=== PATIENT | female | born 1930 | race Caucasian/White ===

== ENCOUNTER 2017-01-22 07:32 | Inpatient (IN) | payer MEDICARE, BC ==
[~2017-01-22] VITALS: Ht 157.5 cm; Wt 65.3 kg
[2017-01-22] MEDS ORDERED: FOLI1TAB4 (07:48)
[2017-01-22] MEDS ORDERED: VESI5TAB2 (07:48)
[2017-01-22] MEDS ORDERED: RANI150C (07:48)
[2017-01-22 08:30] LABS: BASO # 0.1 K/mm3 (0.0-0.2); BASO % 1.5 % (0.0-1.0); EOS # 0.2 K/mm3 (0.0-0.50); EOS % 2.7 % (0.0-3.0); LARGE UNSTAINED CELL # 0.1 K/mm3 (0.0-0.4); LYMPH # 1.8 K/mm3 (1.5-4.5); LYMPH % 28.1 % (24.0-44.0); MEAN CORPUSCULAR HEMOGLOBIN 37.6 pg (27.0-33.0); MEAN CORPUSCULAR HGB CONC 33.6 g/dl (32.0-36.5); MEAN CORPUSCULAR VOLUME 111.7 fl (80.0-96.0); MONO # 0.3 K/mm3 (0.0-0.8); MONO % 5.4 % (0.0-5.0); NEUTROPHILS # 3.6 K/mm3 (1.8-7.7); NEUTROPHILS % 60.2 % (36.0-66.0); PLATELET COUNT, AUTOMATED 276 k/mm3 (150-450); RED CELL DISTRIBUTION WIDTH 12.6 % (11.5-14.5); WHITE BLOOD COUNT 5.9 K/mm3 (4.0-10.0)
[2017-01-22 08:32] LABS: ADD MORPHOLOGY? YES
[2017-01-22 08:53] LABS: OVALOCYTES 1+
--- NOTE | 2017-01-22 09:07 | REP ---
Clinical: Chest pain and palpitations . Comparison: None . Technique: PA and lateral. Findings: The mediastinum and cardiac silhouette are normal. The lung pedro demonstrate chronic-appearing interstitial changes without acute consolidation, effusion, or pneumothorax. The skeletal structures are intact and normal. Impression: No acute cardiopulmonary process. Signed by Hawk Luis MD 01/22/2017 08:58 A
[2017-01-22 09:53] LABS: ANION GAP 11 MEQ/L (8-16); BLOOD UREA NITROGEN 15 MG/DL (7-18); CALCIUM LEVEL 9.1 MG/DL (8.8-10.2); CARBON DIOXIDE LEVEL 24 MEQ/L (21-32); CHLORIDE LEVEL 108 MEQ/L (98-107); CREATININE FOR GFR 0.88 MG/DL (0.55-1.02); GLOMERULAR FILTRATION RATE > 60.0 (>32); GLUCOSE, FASTING 105 MG/DL (83-110); POTASSIUM SERUM 4.7 MEQ/L (3.5-5.1); SODIUM LEVEL 143 MEQ/L (136-145)
[2017-01-22 09:54] LABS: MAGNESIUM LEVEL 2.2 MG/DL (1.8-2.4); T UPTAKE 32 % (30-39); THYROXINE (T4) 10.4 UG/DL (4.5-12.0)
[2017-01-22] MEDS ORDERED: VESI5TAB2 PO (09:58)
[2017-01-22] MEDS ORDERED: FOLI1TAB4 PO (09:58)
[2017-01-22] MEDS ORDERED: CALCTAB28 PO (09:58)
[2017-01-22] MEDS ORDERED: CALC600T31 PO (09:58)
[2017-01-22] MEDS ORDERED: RANI150T PO (09:58)
[2017-01-22] MEDS ORDERED: DICL1GEL3 TD (09:58)
[2017-01-22] MEDS ORDERED: VITMTA PO (09:58)
[2017-01-22] MEDS ORDERED: PROC20004 INJ (09:59)
[2017-01-22] MEDS ORDERED: ENOXAPARIN 60 MG/0.6 ML SYR (J1650) SC ONE (10:30)
[2017-01-22] MEDS ORDERED: ACETAMINOPHEN TAB 650MG DOSE (2X325MG) PO PRN (11:00)
--- NOTE | 2017-01-22 12:09 | HPE ---
DATE OF ADMISSION: 01/22/2017 PRIMARY CARE PROVIDER: Dr. Kenneth Doll in [place]. CHIEF COMPLAINT: Irregular heart rate. HISTORY OF PRESENT ILLNESS: Patient is an 86-year-old female with a past medical history significant for gastroesophageal reflux disease (GERD), myelodysplastic disorder, who presented to [facility] on January 22, 2017 for irregular heart rate. The patient had a regular followup with her primary care provider on January 20, 2017. During the office visit, the patient had a short run of palpitations. An EKG was ordered. The patient was found to have atrial fib/atrial flutter. The episode resolved spontaneously within a few minutes. Patient was instructed to go to the [facility]. The patient was admitted for one day. The patient was given Lovenox and no recurrence of atrial fibrillation was noted and the patient was discharged home. On January 22, 2017 at around 3:30 a.m., the patient had acute recurrence of the irregular heart rate and it has been persistent. Therefore, the patient came to [facility] for further evaluation. While the patient was in the emergency room, the patient was noted to have rapid conversation between sinus rhythm and atrial fibrillation, and the hospitalist team was called for admission. The patient denies any other associated symptoms. No similar episodes occurred in the past. The patient did have two days of diarrhea after eating a pink hamburger that occurred approximately a week ago. No recent new medications. She denies any alcohol use. Denies any recent trauma. ALLERGIES: 1. PENICILLIN. 2. SULFA. PAST MEDICAL HISTORY: Myelodysplastic disorder. Follows with oncology in [place]. Gastroesophageal reflux disease (GERD). History of C. difficile in November of 2015. Pyelonephritis. PAST SURGICAL HISTORY: Cholecystectomy in 2016. Umbilical hernia repair. Femoral hernia repair. SOCIAL HISTORY: Denies smoking. Denies alcohol use. Denies recreational drug use. Home medications - Pepcid one tablet by mouth twice a day - calcium/vitamin D one tablet by mouth daily - diclofenac one dose topically at bedtime - Procrit 20,000 injection monthly - multivitamin one tablet by mouth daily - VESIcare 5 mg by mouth daily REVIEW OF SYSTEMS: GENERAL: No fever. No chills. HEENT: Vision changes, no auditory changes. CARDIOVASCULAR: Sudden onset of palpitations, first episode started on 01/20/2017, episode resolved within a few minutes. Current episode started early on 01/22/2017 and is being persistent. No chest pain. No lightheadedness. RESPIRATORY: No shortness of breath. No cough. No sputum production. GASTROINTESTINAL (GI): No abdominal pain. No nausea. No vomiting. NEUROLOGICAL: No numbness. No tingling. PHYSICAL EXAMINATION: VITAL SIGNS: Temperature is 96.5. Pulse is approximately 140, irregularly irregular. Blood pressure is 155/90. Pulse oximetry is 99% in room air. GENERAL: No signs of acute distress. Alert and oriented times three. HEENT: Normocephalic, atraumatic. Extraocular motors grossly intact. CARDIOVASCULAR: Irregularly irregular. Heart rate running between 120 to 140s, and occasionally converts back to sinus rhythm on the monitor. RESPIRATORY: Clear to auscultation bilaterally. No wheezes, rales or rhonchi. ABDOMEN: Soft, nontender, nondistended. Bowel sounds present. No rebound. No guarding. EXTREMITIES: No edema. No signs of cyanosis. LABORATORY DATA: WBC is 5.9, hemoglobin 10.5, hematocrit 31.3, platelet count is 276. Sodium is 143, potassium 4.7, chloride is 108, carbon dioxide 24, BUN 15, creatinine 0.88, GFR greater than 60, fasting glucose 105, calcium is 9.1, magnesium is 2.2. TSH is 3.57, T4 is 10.4. IMAGING STUDIES: Chest x-ray showed no acute cardiopulmonary processes. EKG: Multiple EKGs were performed. Patient has conversion between sinus and atrial fibrillation continuously on different EKGs. ASSESSMENT/PLAN: 1. Atrial fibrillation. Patient will be admitted to the progressive care unit (PCU) under inpatient status. [employer] Program Compliance Specialist Dr. Infante has been informed and consulted. Per recommendations, patient should have a therapeutic dose of Lovenox and it was given in the emergency room. Patient is continually converting sinus and atrial fibrillation. When the patient is in sinus, the patient's heart rate is borderline low and will appreciate Dr. Infante's recommendation for any rate control therapy. 2. History of myelodysplastic disorder. The patient is received Procrit every month in [facility]. 3. Gastroesophageal reflux disease (GERD). Patient will be on Protonix. 4. History of pyelonephritis. 5. History of C. Difficile. 6. History of hyperlipidemia. Recently patient's atorvastatin was discontinued due to normalized cholesterol. 7. Deep vein thrombosis (DVT) prophylaxis. Patient is on Lovenox.
[2017-01-22] MEDS: PANTOPRAZOLE 40MG TAB (PROTONIX) PO SCH (12:17)
[2017-01-22 16:00] VITALS: BP 120/78
[2017-01-22 20:28] VITALS: BP 100/58
--- NOTE | 2017-01-22 22:28 | CR ---
DATE OF CONSULTATION: 01/22/2017 REFERRING PROVIDER: Estelle Lopez DO REASON FOR CONSULTATION: Atrial fibrillation. HISTORY OF PRESENTING ILLNESS: 86-year-old woman who has been previously healthy from a cardiac point of view. Last year, at the beginning of 2015, she was found to be anemic and she was transfused two units of packed red blood cells at [facility]. She also had had colonoscopy done and this has been negative. She was referred to see hematology/oncology in [place], [place] and has been on Procrit. They were planning to do a bone marrow biopsy but it was postponed. In this same year, in the month of October of 2016, she developed gallbladder disease and had cholecystectomy done without any cardiac complications, but after that developed Clostridium (C) difficile colitis and she was treated for that. She then has been doing fairly well and her hemoglobin and hematocrit has been stable with a hemoglobin around 10. For about 1-2 weeks, she has been having a fluttering in her chest on and off. She was doing fine on Friday, but her symptoms got worse and on Friday she went to the [facility] and she was found to have periods of rapid heart rate alternating with a normal sinus rhythm and sometimes slows at times and patient discovered that she feels her heart was going to stop. She was admitted overnight and she was given anticoagulation therapy with Lovenox, then discharged home for followup as outpatient. She was given a referral to the office. However, this morning, she was not feeling well and she was brought here for further management. Cardiology consult was called. In the emergency room (ER), she was found to have episode of rapid heart rate alternating with normal sinus rhythm in which the heart rate is normal and sometimes slow. Patient was admitted for further management and monitoring and cardiology consult was called. When I saw her this evening, she was sitting in the chair in her room, in no acute distress at rest and she denies any chest pain even with activities. Sometimes when her heart rate is fluttering like that she may feel short of breath, but then she denies any dizziness or lightheadedness. She denies any active bleeding. She has a cough but denies any hemoptysis or fever. She has no focal manifestation. Currently, she is not on any cardiac medications. In the recent past, she was on a statin but it was stopped and she is being monitored. PAST MEDICAL HISTORY: She has a past medical history positive for hyperlipidemia and she was found to have a cyst in the left kidney for which she had a biopsy. As mentioned above, she has underlying anemia but no active bleeding was discovered. She is being monitored by hematology/oncology in [place]. She also has a history of C. difficile colitis. She denies any prior history of hypertension, valvular heart disease, atrial fibrillation, CVA, cardiomyopathy, sudden cardiac . There is no history of diabetes mellitus, chronic obstructive pulmonary disease (COPD)/asthma, chronic kidney disease. There is no history of thyroid disorders. PAST SURGICAL HISTORY: Positive for cholecystectomy, otherwise unremarkable. FAMILY HISTORY: Positive for hypertension, atrial fibrillation. SOCIAL HISTORY: Patient lives in the [facility]. She denies any smoking or ethyl alcohol (EtOH) abuse. ALLERGIES: She has allergies to PENICILLIN and SULFA, adverse reaction described: rash. ADVANCED DIRECTIVES: Patient is a FULL CODE. On physical examination, patient is alert and oriented, very pleasant, and in no acute distress at rest. Her last vital signs today revealed a blood pressure of 120/78, with a pulse that varied between 76 up to 100 on telemetry, but EKG revealed a pulse of 123 beats per minute in the ER. She is afebrile with a temperature of 98.7 degrees Fahrenheit and her oxygen saturation is 98-99% on room air. Examination of the head, ears, eyes, nose, and throat: Atraumatic. Neck is supple, no jugular venous distention (JVD) or carotid bruits. The lungs were clear bilaterally on auscultation without any wheezing or crackles. The heart examination revealed normal S1 and S2 without gallops. The point of maximum impulse (PMI) is not displaced. There is no rub. I could not appreciate any murmurs. Abdomen is soft and nontender, bowel sounds are active. Extremities revealed no pedal edema. Neurological examination grossly is negative for focal deficit. LABORATORY DATA: CBC revealed a WBC of 5.9, hemoglobin 10.5, hematocrit 31.3, and platelets 276,000. BMP revealed a sodium of 143, potassium 4.7, chloride 108, CO2 24, BUN 15, creatinine 0.88, GFR more than 60, fasting glucose 105, calcium 9.1. Serum magnesium is 2.1. One set of cardiac enzymes revealed a CPK of 118, CK-MB of 1.0, relative index of 0.84, and serum troponin is less than 0.02. Thyroid function tests revealed a TSH of 3.57, free T4 of 3.3, thyroxine 10.4. Chest x-ray revealed normal cardiac size. No manifestation of congestive heart failure or pleural effusion. Electrocardiogram done earlier today, 01/22/2017, at 0827 hours, revealed sinus rhythm with isolated premature atrial contractions (PACs), borderline first-degree atrioventricular (AV) block, low voltage QRS complexes noted in the chest leads. Electrocardiogram done also today at 08:20:34 also revealed episode of sinus rhythm with isolated PACs and burst of a narrow complex supraventricular tachycardia that could be atrial flutter or supraventricular tachycardia (SVT). Otherwise, no remarkable changes from last EKG but the brief burst of narrow complex tachycardia. Electrocardiogram done this same day at 08:21:30 did not reveal any significant changes. A further EKG done also today at 08:22:23 revealed a longer period of narrow complex tachycardia that could be, as mentioned above, atrial flutter with history of atrial fibrillation. IMPRESSION: 1. Sick sinus syndrome in this 86-year-old woman with history of hyperlipidemia, chronic anemia, has been having fluttering in her chest on and off and seems to have periods of normal sinus rhythm with a slow heart rate at times that varies between 40-50 beats per minute and also a rapid narrow complex tachycardia that can be about 140 beats per minute, symptomatic. I believe she will need a permanent pacemaker, she will need to be treated for her rapid heart rate and this was discussed with her. I also will discuss with her daughter, who is the health care proxy, then I will discuss with Dr. Harry / Dr. Wood for the permanent pacemaker implantation. In the meantime, we will continue the telemetry and the anticoagulation therapy with Lovenox but will need to monitor closely her hemoglobin, hematocrit, and platelets. We should try to get more information from her religion professor in [place], [place] because she might need chronic anticoagulation therapy. While in the hospital, will assess her left ventricular ejection fraction (LVEF) with an echocardiogram, no significant valvular heart disease heard on examination. Her blood pressure seems to be stable. It was a pleasure to participate in the care of Ms. Ami Barrientos for her underlying cardiac condition. I will continue to monitor her along with you while in the hospital. She appears to be stable. Case was discussed earlier with her hospitalist. JESSICA
[2017-01-23] VITALS (7 sets, daily range): BP systolic 98–133; BP diastolic 58–78
[2017-01-23 06:16] LABS: MEAN CORPUSCULAR HEMOGLOBIN 37.1 pg (27.0-33.0); MEAN CORPUSCULAR HGB CONC 33.7 g/dl (32.0-36.5); MEAN CORPUSCULAR VOLUME 110.1 fl (80.0-96.0); RED CELL DISTRIBUTION WIDTH 12.2 % (11.5-14.5); WHITE BLOOD COUNT 5.6 K/mm3 (4.0-10.0)
[2017-01-23 06:31] LABS: ANION GAP 7 MEQ/L (8-16); BLOOD UREA NITROGEN 16 MG/DL (7-18); CALCIUM LEVEL 8.7 MG/DL (8.8-10.2); CARBON DIOXIDE LEVEL 27 MEQ/L (21-32); CHLORIDE LEVEL 107 MEQ/L (98-107); CREATININE FOR GFR 0.94 MG/DL (0.55-1.02); GLOMERULAR FILTRATION RATE > 60.0 (>32); GLUCOSE, FASTING 103 MG/DL (83-110); POTASSIUM SERUM 4.2 MEQ/L (3.5-5.1); SODIUM LEVEL 141 MEQ/L (136-145)
--- NOTE | 2017-01-23 07:22 | ECGEPIP ---
Stationary ECG Study [facility] - ED Test Date: 2017-01-22 Pat Name: KYLER VIGIL Department: Room: [place] [address] Gender: F Hose Seamer: LALITA : 1930 Requested By: Angelina Kate Order Number: [id number] Reading MD: Angelina Kate Measurements Intervals [place] Rate: 68 P: 62 WV: 200 QRS: -16 QRSD: 81 T: 40 QT: 371 QTc: 396 Interpretive Statements SINUS RHYTHM WITH FREQUENT SUPRAVENTRICULAR PREMATURE COMPLEXES LOW QRS VOLTAGE IN PRECORDIAL LEADS ABNORMAL RHYTHM ECG NSTTW ABNORMALITY NO PRIOR FOR COMPARISON Electronically Signed On 01-23-2017 7:22:36 EDT by Angelina Kate
--- NOTE | 2017-01-23 08:38 | IPN ---
DATE: 01/23/2017 Mrs. Barrientos continues to have episodes of what looks to me like atrial tachycardia alternating with sinus rhythm. I did not see any bradycardiac episodes overnight, but when she is in sinus rhythm, she is in 50s and 60s. She does feel palpitations but has no other symptoms. There has been no chest pain or shortness of breath. Vital signs: Blood pressure 110/70, heart rate as above. She is afebrile. Saturation 97% on room air. Her jugular venous pulse (JVP) is not elevated. Lungs are clear. Heart exam reveals regular rhythm. No gallop, rub or murmur. Abdomen is soft, nontender. I do not appreciate any peripheral edema. Neurologically she is intact. LABORATORY: Hemoglobin 9.6, hematocrit 28, platelet count 272,000. Basic metabolic panel is normal. Thyroid enzymes are normal and cardiac enzymes are normal as well. Chest x-ray did not reveal any abnormalities. ASSESSMENT/PLAN: Mrs. Barrientos is an 86-year-old female who has some form of probably myelodysplastic syndrome who presents with palpitations and is found to have very frequent but brief bouts of narrow complex tachycardia alternating with sinus rhythm. She seems to be quite bothered by this. I do not believe this represents atrial fibrillation or flutter. Because she is bradycardic in between but without any pauses, I think that we can try to administer Ic agent to suppress the arrhythmia. I am going to start her on small dose flecainide while she is monitored in the hospital. Further management will depend on her response. JESSICA
[2017-01-23] MEDS: FLECAINIDE 50MG TABLET PO SCH ×2 (10:22→20:44)
[2017-01-23] MEDS: PANTOPRAZOLE 40MG TAB (PROTONIX) PO SCH (10:22)
[2017-01-23] MEDS: SOLIFENACIN 5 MG TAB PO SCH (10:22)
[2017-01-23] MEDS: MULTIVITAMINS/MINERALS THERAP 1 TAB PO SCH (10:22)
[2017-01-23] MEDS: FOLIC ACID 1 MG TAB PO SCH (10:22)
[2017-01-23] MEDS ORDERED: SLF 3 ML SYR IV PRN (17:15)
--- NOTE | 2017-01-23 20:15 | IPN ---
DATE: 01/23/2017 SUBJECTIVE: The patient seen and examined in the room today. The patient is still complaining to intermittent palpitations. No overnight events are reported. OBJECTIVE: VITAL SIGNS: Temperature is 99.1, pulse is 86, respirations 20, blood pressure is 110/78, pulse oximetry is 97% on room air. GENERAL: No sign of acute distress. Alert and oriented times three. HEENT: Normocephalic, atraumatic. Extraocular motor grossly intact. CARDIOVASCULAR: Regular rate. Positive S1, S2 at the time of examination. LUNGS: Clear to auscultation bilaterally. ABDOMEN: Soft, nontender. EXTREMITIES: No edema. No sign of cyanosis. LABORATORY DATA: WBC is 5.6, hemoglobin 9,.6, hematocrit 28.6, platelet count is 272. Sodium is 141, potassium 4.2, chloride 107, carbon dioxide 27, BUN 16, creatinine 0.94. GFR greater than 60, fasting glucose 103. Calcium 3.7. ASSESSMENT AND PLAN: 1. Cardiac arhythmia. The patient's heart rate is switching between narrow complex tachycardia with sinus rhythm. Panel Machine Operator consulted. We appreciate their recommendations. 2. History of myelodysplastic disorder. The patient is being followed with oncologist in [place]. 3. Gastroesophageal reflux disease. On Protonix. 4. History of C. Difficile. 5. History of pyelonephritis. 6. History of lipidemia. The patient's statin was discontinued by the primary care provider recently due to normalized lipid profile. 7. Deep venous thrombosis (DVT) prophylaxis. The patient is on Lovenox.
[2017-01-23] MEDS: SLF 3 ML SYR IV SCH (20:45)
[2017-01-24] VITALS: BP 118/63
[2017-01-24 04:00] VITALS: BP 131/62
[2017-01-24] MEDS: SLF 3 ML SYR IV SCH ×2 (05:25→13:40)
[2017-01-24 06:25] LABS: MEAN CORPUSCULAR HEMOGLOBIN 37.1 pg (27.0-33.0); MEAN CORPUSCULAR HGB CONC 34.1 g/dl (32.0-36.5); MEAN CORPUSCULAR VOLUME 108.6 fl (80.0-96.0); RED CELL DISTRIBUTION WIDTH 12.5 % (11.5-14.5); WHITE BLOOD COUNT 5.8 K/mm3 (4.0-10.0)
[2017-01-24 06:30] LABS: ANION GAP 8 MEQ/L (8-16); BLOOD UREA NITROGEN 21 MG/DL (7-18); CALCIUM LEVEL 8.9 MG/DL (8.8-10.2); CARBON DIOXIDE LEVEL 27 MEQ/L (21-32); CHLORIDE LEVEL 105 MEQ/L (98-107); CREATININE FOR GFR 0.94 MG/DL (0.55-1.02); GLOMERULAR FILTRATION RATE > 60.0 (>32); GLUCOSE, FASTING 101 MG/DL (83-110); POTASSIUM SERUM 4.3 MEQ/L (3.5-5.1); SODIUM LEVEL 140 MEQ/L (136-145)
--- NOTE | 2017-01-24 07:35 | ECGEPIP ---
Stationary ECG Study [facility] Test Date: 2017-01-24 Pat Name: KYLER VIGIL Department: Room: [place] [address] Gender: F Culture Manager: : 1930 Requested By: Lynsey Roque Order Number: [id number] Reading MD: Aila Massey Measurements Intervals [place] Rate: 62 P: 72 CT: 207 QRS: -8 QRSD: 106 T: 32 QT: 416 QTc: 425 Interpretive Statements SINUS RHYTHM first DEGREE BLOCK PACS ON PRIOR 01/22/17 Electronically Signed On 01-24-2017 7:35:29 EDT by Alia Massey
[2017-01-24 08:00] VITALS: BP 112/68
[2017-01-24] MEDS: FLECAINIDE 50MG TABLET PO SCH (08:01)
[2017-01-24] MEDS: PANTOPRAZOLE 40MG TAB (PROTONIX) PO SCH (08:01)
[2017-01-24] MEDS: MULTIVITAMINS/MINERALS THERAP 1 TAB PO SCH (08:02)
[2017-01-24] MEDS: SOLIFENACIN 5 MG TAB PO SCH (08:02)
[2017-01-24] MEDS: FOLIC ACID 1 MG TAB PO SCH (08:02)
[2017-01-24 12:00] VITALS: BP 133/58
[2017-01-24] MEDS ORDERED: FLEC50TA PO (14:07)
--- NOTE | 2017-01-24 20:05 | IPN ---
DATE: 01/24/2017 Mrs. Ami Barrientos was seen earlier this morning She was sitting in a chair in no acute distress at rest. She was admitted about a couple days ago because of palpitations, and she was found to have intermittent narrow-complex tachycardia alternating with episodes of sinus bradycardia. She was started on flecainide yesterday, 01/23/2017, by Dr. Roque, and it seems that since then she has been doing much better. She has been ambulating. She denies any palpitations. She is on the medication. She only had very few episodes of narrow complex tachycardia/atrial runs. This was thought to be related to atrial tachycardia. She denies any shortness of breath, and she has no pedal edema. She denies any bleeding. She has no cough or hemoptysis. PHYSICAL EXAMINATION: Patient is alert and oriented in no acute distress at rest, and this morning when I saw her, her vital signs revealed a blood pressure of 112/68 with a pulse of 66, respirations 18, and the maximum temperature was 97.9 degrees Fahrenheit with an oxygen saturation of 98% on room air. She has a negative fluid balance of about 1 liter for 01/23/2017. HEENT: Atraumatic. NECK: Supple. No jugular venous distention (JVD). No carotid bruits. LUNGS: Clear bilaterally on auscultation without any wheezing or crackles. HEART: Revealed normal S1, S2 without gallops. The point of maximal impulse (PMI ) is not displaced. There is no rub. I could not appreciate any murmurs. ABDOMEN: Soft and nontender. Bowel sounds active. EXTREMITIES: With no pedal edema. NEUROLOGICAL: Grossly is negative for focal deficit. LABORATORY DATA: EKG done today, 01/24/2017 revealed normal sinus rhythm at 62 beats per minute and first-degree atrioventricular (AV) block; otherwise unremarkable. Chest x-ray on admission, 01/22/2017, revealed no acute cardiopulmonary disease process. CBC done today revealed a WBC of 5.8, hemoglobin 9.1, hematocrit 26.6, and platelets 258,000. BMP revealed a sodium of 140, potassium 4.3, chloride 105, CO2 of 27, BUN 21, creatinine 0.94, GFR more than 60, fasting glucose 101, and calcium 8.9. Telemetry was reviewed. Mrs. Ami Barrientos seems to be stable from a cardiac point of view and asymptomatic. She has been doing well on the flecainide and will continue the same. Since in the hospital, there was no indication for permanent pacemaker. She will be discharged home on flecainide, and prior to going home, she will have a 30-day event recorder, and she will be monitored closely. This was discussed with her, and she has agreed to proceed. This also was discussed with her hospitalist. JESSICA
--- NOTE | 2017-01-27 18:26 | DSES ---
DATE OF ADMISSION: 01/22/2017 DATE OF DISCHARGE: 01/24/2017 PRIMARY CARE PROVIDER: Dr. Kenneth Doll [place], [place] CONSULTANTS: Cardiologists, Dr. Infante and Dr. Roque PROCEDURES: None. COMPLICATIONS: None. DISCHARGE DIAGNOSES: Cardiac arrhythmia. History of myelodysplastic disorder. Gastroesophageal reflux disease. History of Clostridium difficile. History of pyelonephritis. History of dyslipidemia. HOSPITALIZATION COURSE: The patient is an 86-year-old female, presented to [facility] on 01/22/2017 for irregular heart rate. The patient was noted to have cardiac arrhythmia and possible atrial fibrillation. The patient was admitted to the progressive care unit (PCU) and agricultural extension agent, Dr. Infante, was consulted. The patient was started on therapeutic dose of Lovenox. After the cardiology evaluation, the patient was started on flecainide, and the patient's heart rate returned to sinus rhythm. After discussion with the patient and the agricultural extension agent, the patient was discharged on 01/24/2017 with the recommendation to followup with her primary care provider, Dr. Doll in [place] in 1-2 weeks. The patient should go to the agricultural extension agent's office to pickle solution maker lunchroom monitor right after the discharge, and the patient will followup with the agricultural extension agent in 30 days. OBJECTIVE: Vital Signs: Temperature is 97.9, pulse is 66, respiration rate is 18, blood pressure is 112/68, pulse oximetry is 98% in room air. LABORATORY DATA: WBC 5.8, hemoglobin 9.1, hematocrit 26.6, platelet count is 258. Sodium is 140, potassium 4.3, chloride 105, carbon dioxide 27, BUN 21, creatinine 0.94, GFR greater than 60, fasting glucose 101 and calcium is 8.9. IMAGING STUDIES: Chest x-ray on 01/22/2017 showed no acute cardiopulmonary process. DISCHARGE MEDICATIONS: - flecainide 50 mg by mouth twice a day - calcium 600 mg by mouth daily - calcium/vitamin D supplement one tablet by mouth daily - diclofenac one dose transdermal nightly - folic acid 1 mg by mouth daily - multivitamin one tablet by mouth daily - Procrit 20,000 unit injection every month - ranitidine one tablet by mouth twice a day - VESIcare 5 mg by mouth daily DISCHARGE INSTRUCTIONS: Discontinue lines. Discharge home. Activity as tolerated. Diet as tolerated. The patient should followup with her primary care provider, Dr. Doll, in [place] in 1-2 weeks. After discharge, the patient should go to agricultural extension agent's office to pickle solution maker a lunchroom monitor and the patient should followup with cardiology in 30 days. DISCHARGE CONDITION: Stable. DISCHARGE TIME: Greater than 30 minutes.
--- NOTE | 2017-02-03 19:08 | ECGEPIP ---
Stationary ECG Study [facility] Test Date: 2017-01-22 Pat Name: KYLER VIGIL Department: Room: [place] [address] Gender: F [employer] Principal: LALITA : 1930 Requested By: Angelina Kate Order Number: [id number] Reading MD: Bryce Wood Measurements Intervals [place] Rate: 123 P: PA: 0 QRS: -20 QRSD: 87 T: 61 QT: 320 QTc: 459 Interpretive Statements Normal sinus rhythm with borderline first-degree AV block. Developing into ectopic atrial tachycardia Underlying LA conduction disturbance. Rhythm/rate related ST/T-wave abnormalities Clinical correlation advised Electronically Signed On 02-03-2017 19:08:22 EDT by Bryce Wood
== END 2017-01-24 15:50 | disposition home or self-care (01) | DRG 310 ==
LOC: M ED 07:32 → M ED INP 10:59 → M PCU 15:40
PROVIDERS: ADMIT Internal Medicine; ATTEND Internal Medicine
DX: I47.1 Supraventricular tachycardia (principal); K21.9 Gastro-esophageal reflux disease without esophagitis; Z88.0 Allergy status to penicillin; Z88.2 Allergy status to sulfonamides; Z79.899 Other long term (current) drug therapy; D46.9 Myelodysplastic syndrome, unspecified

== ENCOUNTER 2017-11-29 20:13 | Emergency (ER) | payer MEDICARE, BC ==
[2017-11-29 22:28] LABS: BASO # 0.1 10^3/uL (0.0-0.2); BASO % 0.9 % (0.0-1.0); EOS # 0.2 10^3/uL (0.0-0.50); EOS % 3.1 % (0.0-3.0); HEMATOCRIT 28.4 % (36.0-47.0); HEMOGLOBIN 9.5 g/dl (12.0-15.5); IMMATURE GRANULOCYTE % 0.3 % (0-3.0); LYMPH # 2.7 10^3/uL (1.5-4.5); LYMPH % 34.9 % (24.0-44.0); MEAN CORPUSCULAR HEMOGLOBIN 36.8 pg (27.0-33.0); MEAN CORPUSCULAR HGB CONC 33.5 g/dl (32.0-36.5); MEAN CORPUSCULAR VOLUME 110.1 fl (80.0-96.0); MONO # 0.6 10^3/uL (0.0-0.8); MONO % 7.9 % (0.0-5.0); NEUTROPHILS # 4.1 10^3/uL (1.8-7.7); NEUTROPHILS % 52.9 % (36.0-66.0); PLATELET COUNT, AUTOMATED 296 10^3/uL (150-450); RED BLOOD COUNT 2.58 10^6/uL (4.00-5.40); WHITE BLOOD COUNT 7.7 10^3/uL (4.0-10.0)
[2017-11-29 22:58] LABS: ANION GAP 4 MEQ/L (8-16); BLOOD UREA NITROGEN 19 MG/DL (7-18); CALCIUM LEVEL 8.8 MG/DL (8.8-10.2); CARBON DIOXIDE LEVEL 30 MEQ/L (21-32); CHLORIDE LEVEL 111 MEQ/L (98-107); CREATININE FOR GFR 0.73 MG/DL (0.55-1.30); FREE THYROXINE INDEX 2.8 % (1.3-4.8); GLOMERULAR FILTRATION RATE > 60.0 (>32); GLUCOSE, FASTING 125 MG/DL (70-100); MAGNESIUM LEVEL 2.2 MG/DL (1.8-2.4); POTASSIUM SERUM 4.3 MEQ/L (3.5-5.1); SODIUM LEVEL 145 MEQ/L (136-145); T UPTAKE 35 % (30-39)
== END 2017-11-30 00:28 | disposition home or self-care (01) ==
LOC: M ED 11-30 00:28
DX: I49.1 Atrial premature depolarization (principal); E78.5 Hyperlipidemia, unspecified; K21.9 Gastro-esophageal reflux disease without esophagitis; D64.9 Anemia, unspecified; Z79.899 Other long term (current) drug therapy; Z88.0 Allergy status to penicillin; Z88.1 Allergy status to other antibiotic agents; Z88.2 Allergy status to sulfonamides
CPT/HCPCS: 93005